=== PATIENT | male | born 1950 | race Caucasian/White ===

== ENCOUNTER → 2018-10-29 08:07 | Outpatient (CLI) | payer MEDICARE, OTHER, SELFPAY ==
--- NOTE | 2018-10-29 | DI.US.S_ITS ---
PROCEDURE: US ABD AORTA ANEURYSM SCREEN INDICATIONS: AAA SCREEN TECHNIQUE: Real time scanning was performed of the aorta and iliac arteries, with image documentation. COMPARISON: None. FINDINGS: Aorta: Proximal aortic diameter measures 2.5 cm. Mid-aorta measures 2.1 cm. Distal aortic diameter is 1.7 cm. Iliac arteries: Right common iliac artery measures 1.3 cm. Left common iliac artery measures 1.3 cm. IMPRESSION: No abdominal aortic or proximal common iliac artery aneurysm. Dictated by: Zaire Klein [facility] Interpreted: Renu Bnoilla MD on 10/29/2018 at 9:35 Approved by: Renu Bonilla M.D. on 10/29/2018 at 10:58
== END ==
PROVIDERS: PCP Internal Medicine; Visit Provider Internal Medicine
DX: Z13.6 Encounter for screening for cardiovascular disorders (principal)
CPT/HCPCS: 76706

== ENCOUNTER → 2020-01-27 08:40 | Outpatient (CLI) | payer MEDICARE, OTHER, SELFPAY ==
[2020-01-27 10:39] LABS: Alanine Aminotransferase 16 IU/L (<50); Albumin 4.1 g/dL (3.5-5.0); Albumin Globulin Ratio 1.5 (1.0-2.8); Alkaline Phosphatase 72 U/L (38-126); Aspartate Aminotransferase 20 IU/L (17-59); Bilirubin Total 0.8 mg/dL (0.2-1.3); Blood Urea Nitrogen 14 mg/dL (9-20); Calcium 9.4 mg/dL (8.4-10.2); Carbon Dioxide 29 mmol/L (22-32); Chloride 94 mmol/L (98-107); Cholesterol 146 mg/dL (140-199); Estimated Glomerular Filt Rate > 60.0 mL/min (>60); Globulin 2.8 g/dL (1.7-4.1); Glucose 104 mg/dL (80-110); HDL Cholesterol 43 mg/dL (40-60); HEMOLYSIS < 15 (0-50); LDL Cholesterol Calculated 81 mg/dL (<100); Potassium 4.1 mmol/L (3.4-5.1); Sodium 131 mmol/L (137-145); Total Protein 6.9 g/dL (6.3-8.2); Triglycerides 108 mg/dL (35-150)
== END ==
PROVIDERS: PCP Internal Medicine; Referring Provider Internal Medicine; Visit Provider Internal Medicine
DX: I10 Essential (primary) hypertension (principal); E78.00 Pure hypercholesterolemia, unspecified; M15.0 Primary generalized (osteo)arthritis
CPT/HCPCS: 36415; 80053; 80061

== ENCOUNTER → 2021-02-27 09:52 | Outpatient (CLI) | payer MEDICARE, OTHER, SELFPAY ==
[2021-02-27 11:12] LABS: COVID19 -Nasal RAPID Negative (Negative)
== END ==
PROVIDERS: PCP Internal Medicine; Visit Provider Surgery
DX: Z20.822 Contact with and (suspected) exposure to COVID-19 (principal)
CPT/HCPCS: 87635; C9803

== ENCOUNTER 2021-02-28 08:56 | Day surgery (SDC) | payer MEDICARE, OTHER, SELFPAY ==
[2021-02-28] VITALS (9 sets, daily range): BP systolic 97–155; BP diastolic 59–86; PULSE 63–91; RESP 12–16; TEMP 36.4–36.7; O2SAT 94–99; BMI 26.5
--- NOTE | 2021-02-28 | PATH_ITS ---
[facility] Accession Number: [id number] . 01 Material submitted: . colon - 100CM COLON POLYP . 02 Diagnosis: Colon, Polyp 100 cm, Biopsy: Tubular adenoma. MRV 03/04/2021 1453 Local . 02 Electronically signed: . Luz Avelar MD, Pathologist NPI- [id number] . 01 Gross description: . 100CM COLON POLYP: Received in formalin is 1 fragment(s) of griffith, soft tissue measuring 0.3 x 0.5 x 0.3 cm submitted entirely in 1 cassette(s) /QBJ 03/01/2021 0652 Local . 02 Pathologist provided ICD-10: D12.6 . 02 CPT . 714967 Performed at: 01 [facility] [address], [place], [place] [id number] MD Sulaiman Quintero MD Phone: [phone] Performed at: 02 [facility] [address] [place], [place] [id number] MD Luz Avelar MD Phone: [phone]
[2021-02-28] MEDS: SODIUM CHLORIDE 0.9% 1,000 ML 200 ML IV (09:47)
--- NOTE | 2021-02-28 09:52 | PM.HP.1 ---
History of Present Illness History of Present Illness Date Patient Seen: 02/28/21 Time Patient Seen: 09:53 Chief complaint: SDC Narrative: This is a 70-year-old man here for follow-up screening colonoscopy. He had a prior colonoscopy over 10 years ago, which he reports was normal. He denies any new symptoms. Specifically he denies any melena, hematochezia, unexplained abdominal pain, unexplained weight loss. ROS: Thirteen system review is otherwise negative other than as mentioned below and in HPI. PE: GENERAL: Well groomed and cooperative. Appears stated age. Answers questions promptly and appropriately. Vital signs noted. HENT: Normocephalic, atraumatic. Hearing intact. EYES: Conjunctiva pink, sclera white, no periorbital swelling. CARDIOVASCULAR: Regular rate. No pedal edema. RESPIRATORY: Non-tachypneic, breathing comfortably on room air. GASTROINTESTINAL: Abdomen soft and non-distended GENITALURINARY: No flank tenderness. MUSCULOSKELETAL: Equal tone and mass bilaterally. SKIN: Warm, dry, soft, appropriate color for ethnicity. No other lesions, rashes, or wounds. NEURO: Alert and Oriented X 3. No gross sensory deficits, or cognitive issues. PSYCH: Appropriate affect and mood. Patient History Family & Social History Social History: household members spouse Tobacco & Substance use: Smoking Status Never smoker alcohol intake never Substance Use Type does not use Meds Home Medications and Allergies Home Medications Medication Instructions Recorded Confirmed Type atorvastatin 20 mg PO DAILY 02/27/21 02/28/21 History hydrochlorothiazide 25 mg PO DAILY 02/27/21 02/28/21 History lisinopril 10 mg PO DAILY 02/27/21 02/28/21 History Allergies Allergy/AdvReac Type Severity Reaction Status Date / Time No Known Drug Allergies Allergy Verified 02/28/21 09:43 Exam Vital Signs (past 8 hours): - 02/28/21 09:36 Temperature 97.9 F Pulse Rate 91 H Respiratory Rate 15 Blood Pressure 155/86 H Pulse Oximetry 99 Oxygen Delivery Method Room Air Assessment & Plan Assessment and plan (1) At average risk for colon cancer: Status: Acute Assessment & Plan narrative: Risks and benefits of screening colonoscopy and possible polypectomy were discussed with the patient including risk of bleeding, perforation, need for additional procedures, risks of anesthesia. The patient desires to proceed with the colonoscopy procedure. COVID-19 COVID-19 status: Negative Result date/Date tested (Pos, Neg/Pending): 02/27/21 Time Spent With Patient Time with patient: 15-24 minutes Quality VTE Deep Vein Thrombosis/Pulmonary Embolism Present on Admission: No
--- NOTE | 2021-02-28 09:54 | P.OP.ENDO_ITS ---
Operative Date/Time/Diagnoses Date of procedure: 02/28/21 Time of procedure: 09:54 Pre-op diagnosis: Average risk for colon cancer, due for screening colonoscopy Post-op diagnosis: other (Small polyp in the ascending colon) Procedure & Clinicians Study performed: Colonoscopy Procedural sedation performed by the endoscopist Polypectomy with Jumbo forceps Same procedure as scheduled: Yes Indications: Average risk for colon cancer, due for screening colonoscopy Surgeon: Radha Narvaez Procedure Notes SCOAP/Timeout: Performed Procedure in detail: The patient was brought to the room and placed in left lateral decubitus position with all bony prominences padded. A time-out was performed and then the patient was given procedural sedation starting with mg of Versed and 100 mcg of fentanyl. An additional 4 mg of Versed and 50 micro g of fentanyl were given during the procedure. Vitals were monitored throughout the procedure and remained stable. Once adequately sedated, the procedure was begun. A rectal exam was performed revealing no abnormaliti. The colonoscope was then introduced to the rectum and advanced to the cecum in the usual fashion. The cecum was identified by the appendiceal orifice, the mucosal tri- fold, and the ileocecal valve. A small 5 mm polyp was found in the ascending colon removed with Jumbo forceps. The scope was then retracted while rotating side to side and examining each mucosal fold. At the conclusion of the procedure retroflexion was performed and small grade 1-2 internal hemorrhoids without stigmata of bleeding were seen. The scope was then withdrawn from the rectum the procedure was concluded. The patient tolerated the procedure well and was transferred to the PACU in stable condition. Scope withdrawal time: 7 Sedation minutes: 18 Findings: diverticulosis and polyp Specimen(s): other (Small polyp from 100 cm in the ascending colon) Complications: none Impression: Single benign-appearing polyp Post-procedure Recommendations: Colonscopy in 10 years Follow up: as needed Disposition: PACU
[2021-02-28] MEDS: fentaNYL 250 MCG/5 ML INJ IV (10:04)
[2021-02-28] MEDS: MIDAZOLAM 5 MG/5 ML VIAL IV (10:06)
== END 2021-02-28 11:30 | disposition home or self-care (01) ==
PROVIDERS: PCP Internal Medicine; Referring Provider Surgery; Visit Provider Surgery
PROC: 0DJD8ZZ Inspection of Lower Intestinal Tract, Via Natural or Artificial Opening Endoscopic (ICD-10-PCS; CPT 45378; principal; 2021-02-28 10:00)
DX: Z12.11 Encounter for screening for malignant neoplasm of colon (principal); K57.30 Diverticulosis of large intestine without perforation or abscess without bleeding; K64.0 First degree hemorrhoids; D12.2 Benign neoplasm of ascending colon
CPT/HCPCS: 45380; 99152; J2250; J3010